=== PATIENT | male | born 1990 | race Caucasian/White ===

== ENCOUNTER 2016-05-20 19:31 | Emergency (ER) | payer BC ==
[~2016-05-20] VITALS: Ht 185.4 cm; Wt 89.8 kg
[2016-05-20 20:20] VITALS: BP 125/71
--- NOTE | 2016-05-20 20:20 | NUR ---
PT BIBSELF C/O HEADACHE AND FEELING DIZZY S/P HITTING HEAD VIA FRAME OF CAR DOOR. PT AOX4. NO CONFUSION NOTED. STEADY GAIT NOTED. PT AOX4 RR EVEN AND UNLABORED. NO SOB NOTED. NAD NOTED. NO NVD AT THIS TIME. PT NOT DIAPHORETIC. MOLD STAMPER ADONAY AT BEDSIDE FOR EVAL.
== END 2016-05-20 20:44 | disposition home or self-care (01) ==
LOC: ER 19:38
DX: S06.0X9A Concussion with loss of consciousness of unspecified duration, initial encounter (principal); W22.8XXA Striking against or struck by other objects, initial encounter; Y93.89 Activity, other specified; Y92.89 Other specified places as the place of occurrence of the external cause; Y99.9 Unspecified external cause status
CPT/HCPCS: 99283; A4606; Z7610